=== PATIENT | male | born 1940 | race Caucasian/White ===

== ENCOUNTER 2017-01-02 00:21 | Emergency (ER) | payer OTHER ==
[~2017-01-02] VITALS: Ht 175.3 cm; Wt 80.0 kg
[~2017-01-02 00:21] MED LIST: OXYC1SOL5 PO
[2017-01-02 00:27] VITALS: BP 164/85; PULSE 79; RESP 14; TEMP 98.7; O2SAT 98
--- NOTE | 2017-01-02 01:20 | RADRPT ---
EXAM DATE/TIME: 01/02/2017 01:53 [place] COMPARISON: No previous studies available for comparison. 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 MEDICAL HISTORY : Cellulitis left hand. MRSA SURGICAL HISTORY : Hand surgery, left hand. ENCOUNTER: Initial ACUITY: 1 day PAIN SCORE: 0/10 LOCATION: Right upper extremity Hand, second digit PIP to terminal tuft. FINDINGS: Examination of the second digit of the right hand demonstrates no evidence of fracture or dislocation . No radiopaque foreign bodies are seen. There is mild soft tissue swelling over the second digit. CONCLUSION: Mild soft tissue swelling with no underlying bony abnormality. Andre Fields MD on January 02, 2017 at 1:17 Board Certified Radiologist. This report was verified electronically.
[2017-01-02] MEDS ORDERED: CEPH-460 PO (01:26)
[2017-01-02] MEDS ORDERED: BACT800T5 PO (01:26)
--- NOTE | 2017-01-02 01:26 | PD ---
HPI Chief Complaint: Skin Problem Time Seen by Provider: 00:39 Travel History International Travel<30 days: No Contact w/Intl Traveler<30days: No Traveled to known affect area: No History of Present Illness HPI Patient is a 76-year-old male presenting with his daughter for evaluation of right second fingertip infection. Patient states his pain is a 5 out of 10 and states it's throbbing. He denies any fever, chills, nausea or vomiting. 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 At that time he failed outpatient antibiotics twice before he was seen by a hand surgeon. There are no alleviating or exacerbating factors to patient's pain. PFSH Past Medical History Anxiety: Yes Depression: No Cancer: No Cardiovascular Problems: No High Cholesterol: No Diminished Hearing: Yes (HEARING AID) Endocrine: No Genitourinary: No Immune Disorder: No Musculoskeletal: No Neurologic: No Psychiatric: No Reproductive: No Respiratory: No Immunizations Current: Yes Past Surgical History Abdominal Surgery: No Cardiac Surgery: No Ear Surgery: No Endocrine Surgery: No Eye Surgery: No Genitourinary Surgery: No Joint Replacement: Yes (LEFT KNEE MENISCUS REPAIR) Oral Surgery: No Thoracic Surgery: No Other Surgery: Yes (BILAT VARICOSE VEINS REMOVED) Social History Alcohol Use: Yes (DAILY 3-8 BEERS PER DAY) Tobacco Use: No Substance Use: Yes (marijuana) Allergies-Medications (Allergen,Severity, Reaction): Coded Allergies: *MDRO Multi-Drug Resistant Organism (Verified Adverse Reaction, Unknown, ) 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 Resting comfortably in no acute distress. SKIN: Warm and dry. Paronychia to the right second fingertip. Mild edema and erythema noted. HEAD: Normocephalic. EYES: No scleral icterus. No injection or drainage. NECK: Supple, trachea midline. No JVD or lymphadenopathy. CARDIOVASCULAR: Regular rate and rhythm without murmurs, gallops, or rubs. RESPIRATORY: Breath sounds equal bilaterally. No accessory muscle use. GASTROINTESTINAL: Abdomen soft, non-tender, nondistended. MUSCULOSKELETAL: No cyanosis, or edema. BACK: Nontender without obvious deformity. No CVA tenderness. Data Data Last Documented VS Vital Signs Date Time Temp Pulse Resp B/P (MAP) Pulse Ox O2 Delivery O2 Flow Rate FiO2 01/02/17 00:27 98.7 79 14 164/85 (111) 98 Orders Orders Wound Culture And Gram Stain (01/02/17 00:41) Finger ([id number]) (01/02/17 ) Sulfamet-Trimeth Ds 800-160 Mg (Bactrim (01/02/17 01:30) Cephalexin (Keflex) (01/02/17 01:30) Ed Discharge Order (01/02/17 01:26) [facility] Medical Decision Making Medical Screen Exam Complete: Yes Emergency Medical Condition: Yes Medical Record Reviewed: Yes Interpretation(s) Last Impressions Finger X-Ray 01/02/17 0000 Signed Impressions: Service Date/Time: Wednesday, January 02, 2017 01:53 - CONCLUSION: Mild soft tissue swelling with no underlying bony abnormality. Andre Fields MD Vital Signs Date Time Temp Pulse Resp B/P (MAP) Pulse Ox O2 Delivery O2 Flow Rate FiO2 01/02/17 00:27 98.7 79 14 164/85 (111) 98 Differential Diagnosis Paronychia versus cellulitis versus abscess versus osteomyelitis versus other Narrative Course Patient presented with his daughter for evaluation of right second fingertip infection. Please see procedure report I&D. Wound culture obtained and pending. X-ray shows soft tissue swelling with no bony involvement. Patient was given first dose of Bactrim and Keflex in the emergency department. There was given strict return precautions and was advised to return if symptoms did not start improving within 48 hours. They verbalized understanding of these instructions. Patient stable for discharge. Diagnosis Primary Impression: Paronychia of finger Qualified Codes: L03.011 - Cellulitis of right finger Referrals: Primary Care Physician 3 days Patient Instructions: General Instructions, Paronychia (ED) Additional Instructions: Complete full course of antibiotics as prescribed Follow-up with your primary doctor Return to emergency department immediately for any new or worsening symptoms Med/Other Pt SpecificInfo: Prescription(s) given Scripts Cephalexin (Keflex) 500 Mg Cap 500 MG PO Q12H for Infection for 10 Days, #20 CAP 0 Refills Prov: Pati Elliott 01/02/17 Sulfamethoxazole-Trimethoprim (Bactrim DS) 800-160 Mg Tab 1 TAB PO BID for Infection, #20 TAB 0 Refills Prov: Pati Elliott 01/02/17 Disposition: 01 DISCHARGE HOME Condition: Stable Pati Elliott Jan 02, 2017 01:26
[2017-01-02] MEDS ORDERED: SULFAMETHOXAZOLE-TRIMETHOPRIM DS 800-160 MG TAB PO ONE (01:30)
[2017-01-02] MEDS ORDERED: CEPHALEXIN MONOHYDRATE 500 MG CAP PO ONE (01:30)
== END 2017-01-02 01:44 | disposition home or self-care (01) ==
LOC: NEPD 00:21
DX: L03.011 Cellulitis of right finger (principal); B96.20 Unspecified Escherichia coli [E. coli] as the cause of diseases classified elsewhere; B96.4 Proteus (mirabilis) (morganii) as the cause of diseases classified elsewhere
CPT/HCPCS: 10060; 73140; 87070; 87077; 87186